=== PATIENT | male | born 1985 | race Two or more races ===

== ENCOUNTER 2023-05-26 17:48 | Emergency (ER) | payer OTHER ==
[~2023-05-26] VITALS: Ht 172.7 cm; Wt 90.9 kg
[2023-05-26 17:55] VITALS: BP 135/88; PULSE 100; RESP 18; TEMP 98
[2023-05-26] MEDS: HYDROCODONE/ACETAMINOPHEN 5-325 MG TABLET PO ONE (19:27)
[2023-05-26] MEDS ORDERED: IBUP-1492 PO (20:31)
== END 2023-05-26 20:58 | disposition home or self-care (01) ==
LOC: EMS 17:48
DX: S92.421A Displaced fracture of distal phalanx of right great toe, initial encounter for closed fracture (principal); W31.89XA Contact with other specified machinery, initial encounter; Y93.89 Activity, other specified; Y92.89 Other specified places as the place of occurrence of the external cause; Y99.0 Civilian activity done for income or pay
CPT/HCPCS: 99283